=== PATIENT | female | born 1950 | race Caucasian/White ===

== ENCOUNTER → 2018-01-10 | Outpatient (CLI) | payer BC | END | disposition home or self-care (01) | DX: M17.11 Unilateral primary osteoarthritis, right knee (principal); R26.2 Difficulty in walking, not elsewhere classified; M25.561 Pain in right knee; M25.661 Stiffness of right knee, not elsewhere classified; M62.81 Muscle weakness (generalized); Z74.1 Need for assistance with personal care | CPT/HCPCS: 97161 GP; 97165 GO; 97530 GP; 97535 GO ==

== ENCOUNTER 2018-01-29 22:00 | Inpatient (IN) | payer BC, OTHER ==
[~2018-01-29] VITALS: Ht 152.4 cm; Wt 91.0 kg
[~2018-01-29 22:00] MED LIST: AMLODIPINE BESYL5 MG PO; CALCIUM 500 MG1 EACH PO; DAILY MULTIPLE1 EACH PO; SYNTHROID88 MCG PO; ULTRAM50 MG PO; VITAMIN D32000 UNI1 PO
[2018-01-30] MEDS ORDERED: TYLENOL REGULA325 MG PO (06:01)
[2018-01-30 06:05] VITALS: BP 193/77
[2018-01-30 09:53] LABS: HEMATOCRIT 32.4 % (36.0-46.0); MCH 28.9 PG (29.0-34.0); MCHC 30.9 G/DL (30.0-36.0); MCV 93.6 FL (83-99); PLATELET COUNT 172 K/uL (156-360); RBC DIS.WIDTH-CV 14.7 % (11.8-14.6); RBC DIS.WIDTH-SD 50.2 % (39-53); RED BLOOD COUNT 3.46 M/uL (3.80-5.20)
[2018-01-30 10:36] VITALS: BP 133/64
[2018-01-30 15:34] VITALS: BP 148/65
[2018-01-30 19:57] VITALS: BP 145/63
[2018-01-31 00:26] VITALS: BP 145/69
[2018-01-31 04:26] VITALS: BP 169/72
[2018-01-31 05:51] LABS: HEMATOCRIT 31.5 % (36.0-46.0); HEMOGLOBIN 9.8 G/DL (11.9-15.5); MCV 94.9 FL (83-99)
[2018-01-31 06:11] LABS: CHLORIDE 111 MEQ/L (99-109); CREATININE 0.8 MG/DL (0.6-1.3); GFR ESTIMATE (CALCULATED) > 59 mL/min/; GLUCOSE 129 mg/dL (70-99); POTASSIUM 3.6 MEQ/L (3.7-5.4); SODIUM 141 MEQ/L (136-147); UREA NITROGEN (BUN) 10 mg/dL (9-23)
[2018-01-31 07:47] VITALS: BP 137/90
[2018-01-31 11:45] VITALS: BP 112/57
[2018-01-31 15:42] VITALS: BP 134/61
[2018-01-31 20:22] VITALS: BP 145/65
[2018-02-01] VITALS: BP 185/84
[2018-02-01 04:28] VITALS: BP 175/70
[2018-02-01 06:37] LABS: HEMATOCRIT 27.7 % (36.0-46.0); HEMOGLOBIN 8.7 G/DL (11.9-15.5)
[2018-02-01 08:00] VITALS: BP 158/85; BP 194/86
[2018-02-01] MEDS ORDERED: LOVENOX40 MG/0.4 SC (08:10)
[2018-02-01] MEDS ORDERED: ENDOCET 5-3251 EACH PO (08:10)
[2018-02-01 12:21] VITALS: BP 138/64
== END 2018-02-01 14:35 | DRG 470 ==
LOC: ENRESERV 22:00 → 2SOUTH 01-30 05:35 → 3WEST 01-30 10:12 → 2SOUTH 01-30 15:27 → 3WEST 02-01 14:35
PROVIDERS: Orthopaedic Surgery
PROC: 0SRC0J9 Replacement of Right Knee Joint with Synthetic Substitute, Cemented, Open Approach (ICD-10-PCS; principal; 2018-01-30)
PROC: 3E0T3BZ Introduction of Anesthetic Agent into Peripheral Nerves and Plexi, Percutaneous Approach (ICD-10-PCS; 2018-01-30)
DX: M17.11 Unilateral primary osteoarthritis, right knee (principal); E03.9 Hypothyroidism, unspecified; I10 Essential (primary) hypertension; M81.0 Age-related osteoporosis without current pathological fracture; I83.90 Asymptomatic varicose veins of unspecified lower extremity; Z86.718 Personal history of other venous thrombosis and embolism; Z88.1 Allergy status to other antibiotic agents; Z98.84 Bariatric surgery status; Z87.891 Personal history of nicotine dependence
CPT/HCPCS: 73560; 80048; 85014; 85018; 85027; C1713; J0131; J0690; J1100; J1170; J1650; J1885; J2250; J2405; J2795; J3010; J7030; J7050